=== PATIENT | male | born 1975 | race Caucasian/White ===

== ENCOUNTER 2018-04-10 17:12 | Inpatient (IN) ==
[2018-04-10] MEDS ORDERED: Alteplase Bolus 9 MG/9 ML Syringe IV.PUSH ONE (17:42)
[2018-04-10] MEDS ORDERED: ALTEPLASE DRIP IV.SIG ONE (17:42)
--- NOTE | 2018-04-10 17:43 | CT ---
EXAM DATE: 04/10/2018 5:29 PM EDT AGE/SEX: 42 years / Male INDICATIONS: Stroke alert, dysphasia and left sided weakness. CLINICAL DATA: This is the patient's initial encounter. Patient reports that signs and symptoms have been present for 1 day and indicates a pain score of Nonresponsive. MEDICAL/SURGICAL HISTORY: Non-responsive. Non-responsive. RADIATION DOSE: 66.34 CTDI (mGy) COMPARISON: No prior exams available for comparison. TECHNIQUE: CT of the head without contrast. Using automated exposure control and adjustment of the mA and/or kV according to patient size, radiation dose was kept as low as reasonably achievable to ob tain optimal diagnostic quality images. DICOM format image data is available electronically for revi ew and comparison. FINDINGS: Cerebrum: The ventricles are normal for age. No evidence of midline shift, mass lesion, hemorrhage or acute infarction. No extraaxial fluid collections are seen. Posterior Fossa: The cerebellum and brainstem are intact. The 4th ventricle is midline. The cerebe llopontine angle is unremarkable. Extracranial: The visualized portion of the orbits is intact. Skull: The calvaria is intact. No evidence of skull fracture. CONCLUSION: 1. Negative noncontrast CT with no evidence of hemorrhage or mass effect. Report was called by [Dr. Avalos to Dr. Pugh in the emergency room at 1737 hours. ] Electronically signed by: Lawrence Avalos MD 04/10/2018 5:42 PM EDT
--- NOTE | 2018-04-10 17:52 | CT ---
EXAM DATE: 04/10/2018 5:29 PM EDT AGE/SEX: 42 years / Male INDICATIONS: Stroke alert, dysphasia and left sided weakness. CLINICAL DATA: This is the patient's initial encounter. Patient reports that signs and symptoms have been present for 1 day and indicates a pain score of Nonresponsive. MEDICAL/SURGICAL HISTORY: Non-responsive. Non-responsive. RADIATION DOSE: 9.42 CTDI (mGy) COMPARISON: [facility] – [place] HEAD W/O CONTRAST, 04/10/2018. . TECHNIQUE: Volumetric scanning was performed using a multi-row detector CT scanner during bolus infu doug of 100 ml Visipaque 320 (iodixanol) nonionic water-soluble contrast as a cumulative dose for mu ltiple exams. The data was post processed with a variety of visualization algorithms including full volume maximum intensity projection, multi-planar sliding thin slab reformation, curved planar refor mation, and surface rendering techniques. Using automated exposure control and adjustment of the mA and/or kV according to patient size, radiation dose was kept as low as reasonably achievable to obtai n optimal diagnostic quality images. DICOM format image data is available electronically for review and comparison. FINDINGS: The distal internal carotid arteries are widely patent. The appearance of the anterior and middle cer ebral circulation is within normal limits. Both vertebral arteries are patent. The basilar is widely patent. The posterior cerebral circulation is patent throughout its course. CONCLUSION: 1. The intracranial circulation is widely patent. No large or central vessel occlusion identified. Electronically signed by: Marcos Navarro MD 04/10/2018 5:51 PM EDT
[2018-04-10] MEDS: Sod Chloride 0.9% Inj 1,000 ML IV.CONT SCH (17:59)
[2018-04-10 18:06] LABS: Alanine Aminotransferase 156 U/L (12-78)
[2018-04-10 18:11] LABS: Alkaline Phosphatase 54 U/L (45-117); Anion Gap 12 meq/L (5-15); Aspartate Aminotransferase 212 U/L (15-37); Blood Urea Nitrogen 6 mg/dL (7-18); Calcium 8.3 mg/dL (8.5-10.1); Carbon Dioxide 26.5 meq/L (21.0-32.0); Chloride 104 meq/L (98-107); Creatine Kinase 206 U/L (39-308); Glomerular Filtration Rate Greater Than 89 mL/min (>89); Glucose,Random 102 mg/dL (74-106); Potassium 3.3 meq/L (3.5-5.1); Sodium 142 meq/L (136-145); Total Protein 8.2 g/dL (6.4-8.2)
[2018-04-10 18:12] LABS: Alcohol 327 mg/dL (0-5)
--- NOTE | 2018-04-10 18:12 | ED ---
HPI General Chief Complaint: Stroke Alert Stated Complaint: Poss injestion Time Seen by Provider: 04/10/18 17:27 Source: patient Mode of arrival: ambulatory Limitations: no limitations History of Present Illness HPI Narrative: The patient is a 42-year-old male who arrives to the ED due to weakness in the left arm and left leg. Symptoms started about 1 hour prior while he was drinking alcohol at a bar. Patient reports drinking alcohol typically every day however believes that symptoms today are different from anything related to alcohol previously. He reports a TIA in the past with symptoms that included numbness and tingling left face arm and legs. Onset (ago): hour(s) (1) Timing confirmed by: other (EMS) Location: Reports left face, left arm and left leg History of same: No Severity: mild Quality: Reports weak, numb and tingling Relieving factors: none Exacerbating factors: none Context: Reports sudden onset On Anticoagulants: No (pt states he might take aspirin) Associated symptoms: Reports other (alcohol intoxication) Related Data Home Medications Medication Instructions Recorded Confirmed Unable to Obtain Home Meds 04/10/18 04/10/18 Allergies Allergy/AdvReac Type Severity Reaction Status Date / Time No Known Allergies Allergy Verified 04/10/18 17:46 Review of Systems ROS Unobtainable ROS Unobtainable: unobtainable due to mental condition PMFSH Medical History Medical History Femur fracture, right (Acute) Fibula fracture (Acute) TIA (transient ischemic attack) (Acute) Surgical History Surgical History History of shoulder surgery (Acute) Social History Social History Substance History: Active Abuse Second Hand Smoke Exposure: Yes Smoking Status: Current every day smoker Tobacco Type: Cigarettes How Often Do You Have a Drink Containing Alcohol: 4 or more times a week Recent Travel in [email or web address] within the Last 8 Weeks: No Recent Out of Country Travel within the Last 8 Weeks: No Substance Abuse Detail Marijuana: Substance Use Status: Active Route Used Substance Abuse: Inhalation Reason for Use: Feels Good Immunization History Tetanus Immunization: Unsure Hx Influenza Vaccine This Season: No Exam Narrative Exam Narrative: GENERAL: 42-year-old male well-nourished well-developed EtOH on breath mildly anxious SKIN: Focused skin assessment warm/dry. HEAD: Atraumatic. Normocephalic. EYES: Pupils equal and round. No scleral icterus. No injection or drainage. Trace scleral blood is present in the right eye medially and laterally. ENT: No nasal bleeding or discharge. Mucous membranes pink and moist. NECK: Trachea midline. No JVD. CARDIOVASCULAR: Regular rate and rhythm. No murmur appreciated. RESPIRATORY: No accessory muscle use. Clear to auscultation. Breath sounds equal bilaterally. GASTROINTESTINAL: Abdomen soft, non-tender, nondistended. Hepatic and splenic margins not palpable. MUSCULOSKELETAL: No obvious deformities. No clubbing. No cyanosis. No edema. NEUROLOGICAL: Awake and alert. Speech is somewhat slurred potentially related to alcohol intoxication. Left upper extremity weakness is noted 4/5. Left lower extremity weakness is noted for 5. There is sensory loss to pin along the left leg left hand and left face. PSYCHIATRIC: Appropriate mood and affect; insight and judgment normal. Course Initial Documented Vital Signs Pulse Oximetry 97 04/10/18 17:27 Last Documented Vital Signs Temperature 98.7 F 04/10/18 17:42 Pulse Rate 68 04/10/18 17:42 Respiratory Rate 18 04/10/18 17:42 Blood Pressure 136/86 04/10/18 17:42 Pulse Oximetry 99 04/10/18 18:12 Critical Care Time Critical Care Time: Yes Total Critical Care Time: 45 Attestation: The aggregate critical care time was 45 minutes. Time to perform other separately billable procedures was not included in the critical care time. My time did not include minutes spent treating any other patients simultaneously or on activities that did not directly contribute to the patient's treatment. The services I provided to this patient were to treat and/or prevent clinically significant deterioration that could result in: Permanent deficit, disability I provided critical care services requiring my management, as noted below: Chart data review, documentation time, medication orders and management, vital sign assessments/reviewing monitor data, ordering and reviewing lab tests, ordering and interpreting/reviewing x-rays and diagnostic studies, care of the patient and discussion of the patient with the admitting physicians. NIH Stroke Scale NIH Stroke Scale Level of Consciousness: 1-Drowsy Orientation Questions: 0-Answers both correct Responds to Commands: 0-Both tasks correct Gaze Eye Movement: 0-Horizontal movement WNL Visual Ji: 0-No visual field defect Facial Movement: 0-Normal Motor Functions Arm LEFT: 1-Drift before 10 seconds Motor Functions Arm RIGHT: 0-No drift Motor Functions Leg LEFT: 1-Drift before 5 seconds Motor Functions Leg RIGHT: 0-No drift Limb Ataxia: 0-No ataxia Sensory Loss: 1-Mild sensory loss Best Language: 1-Mild aphasia Articulation: 0-Normal Extinction or Inattention Sensory: 0-Absent Total: 5 Medical Decision Making MDM Narrative Medical decision making narrative: Patient arrives intoxicated with alcohol. Findings are concerning for ischemic stroke. Head CT normal CT of the head and neck normal. The patient received alteplase. He has minimal scleral blood on the right side. This was discussed with ophthalmology. It is not considered to be a contraindication to alteplase. Neurology consultation appreciated. The patient will be admitted to the [facility]. Case discussed with Dr. Richardson for the assistant director service. Medical Screen Exam Complete: Yes Emergency Medical Condition: Yes Differential Diagnosis Differential Diagnosis: Ischemic stroke, hemorrhagic stroke, alcohol intoxication Lab Data Result diagrams: 04/10/18 17:23 04/10/18 17:23 Lab Results 04/10/18 04/10/18 04/10/18 Range/Units 17:23 17:23 17:23 POC Hgb (Calc) 14.6 (13.0-17.0) g/dL POC Hct 43.0 (39-51.0) % POC Sodium 143 (137-144) mmol/L Sodium 142 (136-145) meq/L POC Potassium 3.4 L (3.6-5.0) mmol/L Potassium 3.3 L (3.5-5.1) meq/L POC Chloride 102 (102-111) mmol/L Chloride 104 (98-107) meq/L Carbon Dioxide 26.5 (21.0-32.0) meq/L Anion Gap 12 (5-15) meq/L POC BUN 5 (5-21) mg/dL BUN 6 L (7-18) mg/dL Creatinine 0.77 (0.60-1.30) mg/dL POC Creatinine 1.0 (0.6-1.3) mg/dL Estimated GFR Greater than 89 (>89) mL/min POC Glucose 108 (68-110) mg/dL Random Glucose 102 (74-106) mg/dL Calcium 8.3 L (8.5-10.1) mg/dL Total Bilirubin 0.6 (0.2-1.0) mg/dL AST 212 H (15-37) U/L ALT 156 H (12-78) U/L Alkaline Phosphatase 54 (45-117) U/L Total Creatine Kinase 206 (39-308) U/L Troponin I Less than 0.02 L (0.02-0.05) ng/mL Total Protein 8.2 (6.4-8.2) g/dL Albumin 4.0 (3.4-5.0) g/dL Serum Alcohol 327 H (0-5) mg/dL Blood Type O Positive Blood Type Recheck Required 04/10/18 04/10/18 Range/Units 17:23 18:01 POC Hgb (Calc) (13.0-17.0) g/dL POC Hct (39-51.0) % POC Sodium (137-144) mmol/L Sodium (136-145) meq/L POC Potassium (3.6-5.0) mmol/L Potassium (3.5-5.1) meq/L POC Chloride (102-111) mmol/L Chloride (98-107) meq/L Carbon Dioxide (21.0-32.0) meq/L Anion Gap (5-15) meq/L POC BUN (5-21) mg/dL BUN (7-18) mg/dL Creatinine (0.60-1.30) mg/dL POC Creatinine (0.6-1.3) mg/dL Estimated GFR (>89) mL/min POC Glucose 100 (68-110) mg/dL Random Glucose (74-106) mg/dL Calcium (8.5-10.1) mg/dL Total Bilirubin (0.2-1.0) mg/dL AST (15-37) U/L ALT (12-78) U/L Alkaline Phosphatase (45-117) U/L Total Creatine Kinase Cancelled (39-308) U/L Troponin I Cancelled (0.02-0.05) ng/mL Total Protein (6.4-8.2) g/dL Albumin (3.4-5.0) g/dL Serum Alcohol (0-5) mg/dL Blood Type Blood Type Recheck Imaging Data Radiologist's impression: Head CT 04/10/18 17:27 CONCLUSION: 1. Negative noncontrast CT with no evidence of hemorrhage or mass effect. Report was called by [Dr. Avalos to Dr. Pugh in the emergency room at 1737 hours. ] Head CTA 04/10/18 17:27 CONCLUSION: 1. The intracranial circulation is widely patent. No large or central vessel occlusion identified. ECG Data Attestation: I personally reviewed and interpreted this ECG as follows: (EKG shows sinus rhythm with a rate of 76 no ischemic injury pattern or arrhythmia) Discharge Plan Discharge Disposition Patient Disposition: 30 Still Patient Physicians Team ED Provider: Marcos Pugh Other Providers: Ger Blancas Rxs /Orders / Referrals /Forms Prescriptions: No Action Unable to Obtain Home Meds RF: 0 Status ED Status: With Doctor
[2018-04-10 18:15] LABS: Baso # (Auto) 0.1 th/mm3 (0.0-0.2); Baso % (Auto) 2.1 % (0.0-2.0); Eos # (Auto) 0.1 th/mm3 (0.0-0.4); Eos % (Auto) 1.4 % (0.0-4.0); Hematocrit 41.2 % (39.0-51.0); Hemoglobin 14.6 gm/dL (13.0-17.0); Lymph # (Auto) 1.2 th/mm3 (1.0-4.8); Lymph % (Auto) 32.6 % (9.0-44.0); Mean Corpuscular HGB Conc 35.5 % (32.0-36.0); Mean Corpuscular Hemoglobin 38.8 pg (27.0-34.0); Mean Corpuscular Volume 109.4 fL (80.0-100.0); Mono # (Auto) 0.4 th/mm3 (0.0-0.9); Mono % (Auto) 10.2 % (0.0-8.0); Neut % (Auto) 53.7 % (16.0-70.0); Platelet Count 239 th/mm3 (150-450); Red Blood Count 3.77 mil/mm3 (4.50-5.90); Red Cell Distribution Width 16.7 % (11.6-17.2); White Blood Count 3.8 th/mm3 (4.0-11.0)
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
[2018-04-10 18:17] LABS: Activated Partial Thrombo Time 28.5 sec (24.3-30.1); Prothrombin Time 10.4 sec (9.8-11.6)
--- NOTE | 2018-04-10 18:23 | XR ---
EXAM DATE: 04/10/2018 5:27 PM EDT AGE/SEX: 42 years / Male INDICATIONS: Stroke alert. CLINICAL DATA: This is the patient's initial encounter. Patient reports that signs and symptoms have been present for 1 day and indicates a pain score of 0/10. MEDICAL/SURGICAL HISTORY: None. None. COMPARISON: No prior exams available for comparison. FINDINGS: A single AP view of the chest demonstrates the lungs to be symmetrically aerated without evidence of mass, infiltrate or effusion. The cardiomediastinal contours are unremarkable. Osseous structures a re intact. There are overlying electrocardiogram leads and tubing. CONCLUSION: No acute cardiopulmonary disease. Electronically signed by: Lawrence Avalos MD 04/10/2018 6:22 PM EDT
--- NOTE | 2018-04-10 18:23 | CT ---
EXAM DATE: 04/10/2018 5:29 PM EDT AGE/SEX: 42 years / Male INDICATIONS: Stroke alert, dysphasia and left sided weakness. CLINICAL DATA: This is the patient's initial encounter. Patient reports that signs and symptoms have been present for 1 day and indicates a pain score of Nonresponsive. MEDICAL/SURGICAL HISTORY: Non-responsive. Non-responsive. RADIATION DOSE: 9.42 CTDI (mGy) ; Combined studies COMPARISON: No prior exams available for comparison. TECHNIQUE: Volumetric scanning was performed using a multirow detector CT scanner during bolus infus ion of 100 ml Visipaque 320 (iodixanol) nonionic water-soluble contrast as a cumulative dose for mul tiple exams. The data was postprocessed with a variety of visualization algorithms including full-v olume maximum intensity projection, multiplanar sliding thin-slab reformation, curved-planar reformat ion, and surface-rendering techniques. Using automated exposure control and adjustment of the mA and /or kV according to patient size, radiation dose was kept as low as reasonably achievable to obtain o ptimal diagnostic quality images. DICOM format image data is available electronically for review and comparison. Percent stenosis is calculated using the diameter of the stenotic region over the diameter of the nor mal distal internal carotid artery. FINDINGS: Aortic Arch: There is a three-vessel origin of the great vessels from the aorta. No evidence of ost ial narrowing Right Carotid: The common carotid artery is intact. The carotid bulb has a normal configuration wit hout ulceration or narrowing. The internal carotid artery lumen is smooth without stenosis. The ext ernal carotid artery is intact. Left Carotid: The common carotid artery is intact. The carotid bulb has a normal configuration with out ulceration or narrowing. The internal carotid artery lumen is smooth without stenosis. The exte rnal carotid artery is intact. Vertebrals: The vertebral arteries have a symmetric diameter. No stenotic lesions are seen. CONCLUSION: 1. Negative CTA Carotid. Electronically signed by: Marcos Navarro MD 04/10/2018 6:21 PM EDT
[2018-04-10] MEDS ORDERED: Bisacodyl 10 MG Supp RECTAL PRN (18:44)
[2018-04-10] MEDS ORDERED: LORazepam 1 MG Tablet PO PRN (18:48)
[2018-04-10] MEDS ORDERED: Haloperidol Inj 5 MG/ML Ampul IV.PUSH PRN (18:48)
[2018-04-10 19:32] LABS: Folate 2.7 ng/mL (3.1-17.5); Free T4 (Free Thyroxine) 0.86 ng/dL (0.76-1.46); Thyroid Stimulating Hormone 0.773 uIU/mL (0.358-3.740)
[2018-04-10] MEDS ORDERED: hydrALAZINE HCl Inj 20 MG/ML Vial IV.PUSH PRN (19:46)
[2018-04-10] MEDS ORDERED: Labetalol HCl Inj 100 MG/20 ML Vial IV.PUSH PRN (19:46)
[2018-04-10] MEDS ORDERED: Potassium Phosphate Inj 30 MMOL in Sodium Chlor 0.9% Inj 250 ML IV.SIG PRN (20:18)
[2018-04-10] MEDS ORDERED: Magnesium Oxide 400 MG Tablet PO PRN (20:18)
[2018-04-10] MEDS ORDERED: Potassium Chloride 25 MEQ Effervescent Tablet PO PRN (20:18)
[2018-04-10] MEDS ORDERED: Potassium Chlor 40 mEq Premix 40 MEQ/100 ML PIGGYBACK IV.SIG PRN ×2 (20:18)
[2018-04-10] MEDS ORDERED: Magnesium Sulfate Inj 2 GM in Sodium Chlor 0.9% Inj 96 ML IV.SIG PRN (20:18)
[2018-04-10] MEDS ORDERED: Potassium Phosphate 500 MG Soluble Tablet PO PRN ×2 (20:18)
[2018-04-10] MEDS ORDERED: Sodium Phosphate Inj 30 MMOL in Sodium Chlor 0.9% Inj 250 ML IV.SIG PRN (20:18)
[2018-04-10] MEDS ORDERED: Potassium Chlor 20 mEq Premix 20 MEQ/100 ML PIGGYBACK IV.SIG PRN ×2 (20:18)
[2018-04-10] MEDS ORDERED: Magnesium Sulfate Inj 4 GM in Sodium Chlor 0.9% Inj 92 ML IV.SIG PRN (20:18)
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
[2018-04-10] MEDS ORDERED: Gadobutrol PF 7.5 MMOL/7.5 ML Vial (for RAD) IV.SIG ONE (21:35)
--- NOTE | 2018-04-10 21:43 | MR ---
EXAM DATE: 04/10/2018 8:46 PM EDT AGE/SEX: 42 years / Male INDICATIONS: Stroke alert. Left side weakness. CLINICAL DATA: This is the patient's initial encounter. Patient reports that signs and symptoms have been present for 1 day and indicates a pain score of 0/10. MEDICAL/SURGICAL HISTORY: Hypertension. . Orthopedic. [place] [facility] [place] W 3[place]/10/2018. . TECHNIQUE: Multiplanar, multisequence examination of the brain was performed without and with 7cc ml Gadavist (gadobutrol) contrast as a single exam dose. FINDINGS: Cerebrum: The ventricles are normal for age. No evidence of midline shift, mass lesion, hemorrhage or acute infarction. No extraaxial fluid collections are seen. The pituitary gland and suprasellar cistern are normal in configuration. White Matter: No significant signal abnormalities are seen in the white matter. Posterior Fossa: The cerebellum and brainstem are intact. The 4th ventricle is midline. The cerebel lopontine angle is unremarkable. The cerebellar tonsils are normal in position. Diffusion Imaging: No focal areas of restricted diffusion are seen. No evidence of acute infarction . Extracranial: The visualized portions of the orbits and paranasal sinuses are unremarkable. Post Contrast: No abnormal areas of parenchymal or dural enhancement. No evidence of blood-brain ba rrier breakdown. CONCLUSION: 1. Negative exam with no evidence of hemorrhage or infarction. Electronically signed by: Lawrence Avalos MD 04/10/2018 9:42 PM EDT
[2018-04-10] MEDS: Multivitamin Inj 10 ML, Thiamine Inj 100 MG, Folic Acid Inj 1 MG in Sodium Chlor 0.9% I... IV.SIG SCH (23:56)
[2018-04-10] MEDS: Senna/Docusate Sodium 8.6/50 MG Tablet PO SCH (23:56)
[2018-04-10] MEDS: Famotidine 20 MG Tablet PO SCH (23:56)
[2018-04-11] MEDS ORDERED: Chlorhexidine Gluconate 2% 1 Pack (2 Cloths) TOPICAL PRN (04:00)
[2018-04-11] MEDS: Chlorhexidine Gluconate 2% 1 Pack (2 Cloths) TOPICAL SCH (04:03)
[2018-04-11 07:22] LABS: Amphetamine Screen,Urine Neg (Neg); Barbiturate Screen,Urine Neg (Neg); Cannabinoid Screen,Urine Pos (Neg); Cocaine Screen,Urine Pos (Neg)
[2018-04-11 07:24] LABS: Opiate Screen,Urine Neg (Neg)
[2018-04-11 07:26] LABS: Chol/HDL Ratio 2.04 Ratio; HDL Cholesterol 79.6 mg/dL (40.0-60.0)
[2018-04-11 07:50] LABS: Bacteria,Urine Occasional /hpf; Bilirubin,Urine Negative (Negative); Clarity,Urine Clear (Clear); Color,Urine Amber (Yellw/Straw); Glucose,Urine (UA) Negative (Negative); Leukocyte Esterase,Urine Negative (Negative); Mucus,Urine Moderate /lpf (Occasional); Nitrite,Urine Negative (Negative); Squamous Epithelial Cell,Urine <1 /hpf (0-5); Urobilinogen,Urine 4 or Greater mg/dL (Less than 2)
[2018-04-11] MEDS: Famotidine 20 MG Tablet PO SCH ×2 (08:14→21:08)
[2018-04-11] MEDS: Senna/Docusate Sodium 8.6/50 MG Tablet PO SCH ×2 (08:14→21:08)
--- NOTE | 2018-04-11 08:33 | P.PNNEU ---
Subjective Subjective Comments: sr Active Medications: Active Medications Al Hydroxide/Mg Hydroxide (Milk Of Josy Price) 30 ml PO Q12H PRN PRN Reason: Mild Constipation Albuterol (Duoneb Neb (Prn)) 1 ampul NEB Q2HR NEB PRN PRN Reason: WHEEZING Bisacodyl (Dulcolax Supp) 10 mg RECTAL DAILY PRN PRN Reason: SEVERE CONSITIPATION Chlorhexidine Gluconate (Chlorhexidine 2% Cloth) 3 pack TOPICAL DAILY@0400 [facility] Stop: 04/16/18 03:59 Last Admin: 04/11/18 04:03 Dose: 3 pack Chlorhexidine Gluconate (Chlorhexidine 2% Cloth) 3 pack TOPICAL DAILY@0400 PRN PRN Reason: Extra cloth needed Stop: 04/16/18 03:59 Cyanocobalamin (Vitamin B12 Inj) 1,000 mcg IM ONCE [facility] Famotidine (Pepcid) 20 mg PO BID [facility] Last Admin: 04/11/18 08:14 Dose: 20 mg Flumazenil (Romazecon Inj) 0.2 mg IV.PUSH Q1M PRN PRN Reason: OVERSEDATION Haloperidol Lactate (Haldol Inj) 1 mg IV.PUSH Q15M PRN PRN Reason: for severe agitation Hydralazine HCl (Apresoline Inj) 10 mg IV.PUSH Q30M PRN PRN Reason: SBP >180 or DBP >105 Sodium Chloride (Ns Inj) 1,000 mls @ 70 mls/hr IV.CONT .[id number] [facility] Last Admin: 04/10/18 17:59 Dose: 70 mls/hr Multivitamins 10 ml/ Thiamine HCl 100 mg/ Folic Acid 1 mg/Sodium Chloride 511.2 mls @ 127.8 mls/hr IV.SIG Q24H [facility] Last Infusion: 04/11/18 04:03 Dose: Infused Magnesium Sulfate 4 gm/ Sodium (Chloride) 100 mls @ 50 mls/hr IV.SIG UNSCH PRN PRN Reason: For Magnesium 0.9 - 1.1 mg/dL Magnesium Sulfate 2 gm/ Sodium (Chloride) 100 mls @ 50 mls/hr IV.SIG UNSCH PRN PRN Reason: For Magnesium 1.2 - 1.6 mg/dL Potassium Chloride (Kcl 40 Meq Premix Inj) 40 meq in 100 mls @ 25 mls/hr IV.SIG Q2H PRN PRN Reason: For Potassium 2.8 - 3.2 mEq/L Potassium Chloride (Kcl 20 Meq Premix Inj) 20 meq in 100 mls @ 50 mls/hr IV.SIG Q2H PRN PRN Reason: For Potassium 3.3 - 3.5 mEq/L Potassium Chloride (Kcl 20 Meq Premix Inj) 20 meq in 100 mls @ 50 mls/hr IV.SIG Q2H PRN PRN Reason: For Potassium 2.8 - 3.2 mEq/L Potassium Phosphate 30 mmol/ (Sodium Chloride) 260 mls @ 42 mls/hr IV.SIG UNSCH PRN PRN Reason: SEE LABEL COMMENTS Sodium Phosphate 30 mmol/ (Sodium Chloride) 260 mls @ 42 mls/hr IV.SIG UNSCH PRN PRN Reason: For Phosphorus < 2.5 mg/dL Potassium Chloride (Kcl 40 Meq Premix Inj) 40 meq in 100 mls @ 25 mls/hr IV.SIG UNSCH PRN PRN Reason: For Potassium 3.3 - 3.5 mEq/L Labetalol HCl (Trandate Inj) 10 mg IV.PUSH Q4H PRN PRN Reason: SBP >180 or DBP >105 Lactulose (Lactulose Liq) 30 ml PO DAILY PRN PRN Reason: SEVERE CONSITIPATION Lorazepam (Ativan) 1 mg PO Q4H PRN PRN Reason: for CIWA 8-10 Lorazepam (Ativan) 2 mg PO Q2H PRN PRN Reason: for CIWA 11-14 Lorazepam (Ativan Inj) 2 mg IV.PUSH Q2H PRN PRN Reason: for CIWA 11-14 Last Admin: 04/10/18 21:00 Dose: 2 mg Lorazepam (Ativan Inj) 2 mg IV.PUSH Q1H PRN PRN Reason: for CIWA 15-20 Lorazepam (Ativan Inj) 2 mg IV.PUSH Q15M PRN PRN Reason: for CIWA > 20 Lorazepam (Ativan Inj) 1 mg IV.PUSH Q4H PRN PRN Reason: for CIWA 8-10 Magnesium Oxide (Mag-Ox) 800 mg PO UNSCH PRN PRN Reason: For Magnesium 1.2 - 1.6 mg/dL Ondansetron HCl (Zofran Inj) 4 mg IV.PUSH Q6H PRN PRN Reason: NAUSEA OR VOMITING Potassium Bicarb/Potassium Chloride (K-Lyte Cl Eff) 50 meq PO UNSCH PRN PRN Reason: For Potassium 3.3 - 3.5 mEq/L Potassium Phosphate (K-Phos Original) 2,000 mg PO Q4H PRN PRN Reason: Phosphorus Less Than 2.5 mg/dL Potassium Phosphate (K-Phos Original) 2,000 mg PO UNSCH PRN PRN Reason: SEE LABEL COMMENTS Senna/Docusate Sodium (Isa-Colace) 1 tab PO BID [facility] Last Admin: 04/11/18 08:14 Dose: Not Given Sennosides (Senokot) 17.2 mg PO Q12H PRN PRN Reason: Moderate Constipation Sodium Chloride (Ns Flush) 2 ml IV.FLUSH PRN PRN PRN Reason: FLUSH AFTER USING IV ACCESS Sodium Chloride (Ns Flush) 2 ml IV.FLUSH BID [facility] Last Admin: 04/11/18 08:14 Dose: 2 ml Allergies/Adverse Reactions: Allergies Allergy/AdvReac Type Severity Reaction Status Date / Time No Known Allergies Allergy Verified 04/10/18 17:46 Physical Exam Vital signs: Vital Signs 04/10/18 17:27 04/10/18 17:42 04/10/18 18:12 Temperature 98.7 F Pulse Rate 68 Respiratory Rate 18 Blood Pressure 136/86 Pulse Oximetry 98 99 99 04/10/18 20:01 04/10/18 20:31 04/10/18 20:50 Temperature 97.7 F Pulse Rate 70 54 L Respiratory Rate 16 16 Blood Pressure 127/82 Pulse Oximetry 98 100 100 04/10/18 21:01 04/10/18 22:01 04/10/18 22:31 Temperature Pulse Rate 52 L 75 67 Respiratory Rate 15 15 15 Blood Pressure 116/65 Pulse Oximetry 99 99 98 04/10/18 23:01 04/10/18 23:31 04/11/18 00:01 Temperature Pulse Rate 64 62 62 Respiratory Rate 14 15 14 Blood Pressure Pulse Oximetry 98 98 97 04/11/18 00:31 04/11/18 01:01 04/11/18 01:31 Temperature Pulse Rate 61 66 65 Respiratory Rate 15 14 14 Blood Pressure 121/70 Pulse Oximetry 98 98 98 04/11/18 02:31 04/11/18 03:31 04/11/18 04:00 Temperature 97.5 F L Pulse Rate 64 58 L 63 Respiratory Rate 14 17 18 Blood Pressure Pulse Oximetry 98 98 99 04/11/18 05:00 04/11/18 06:00 Temperature Pulse Rate 62 81 Respiratory Rate 17 18 Blood Pressure 144/89 H 164/91 H Pulse Oximetry 99 98 Intake & Output 04/10/18 04/11/18 04/11/18 18:59 06:59 18:59 Intake Total 57 / 57 511.2 / 511.2 Balance 57 / 57 511.2 / 511.2 Weight 71.1 kg 71 kg Intake: IV 57 / 57 511.2 / 511.2 Activase Drip 57 MG In Bag/ 57 / 57 Syringe 1 EACH @ 57 mls/hr IV. SIG ONCE ONE Rx#:[id number] MVI-12 Inj 10 ML Thiamine Inj 511.2 / 511.2 100 MG Folvite Inj 1 MG In NS Inj 500 ML @ 127.8 mls/hr IV. SIG Q24H [facility] Rx#:[id number] Other: Weight On Admission 71 kg Narrative: awake alert minor give way lue and lle ow nl / t/o voice clear now Objective Laboratory Results - last 24 hr 04/10/18 04/10/18 04/10/18 17:23 17:23 17:23 WBC 3.8 L RBC 3.77 L Hgb 14.6 POC Hgb (Calc) 14.6 Hct 41.2 POC Hct 43.0 MCV 109.4 H MCH 38.8 H MCHC 35.5 RDW 16.7 Plt Count 239 MPV 7.0 Neut % (Auto) 53.7 Lymph % (Auto) 32.6 [place] % (Auto) 10.2 H Eos % (Auto) 1.4 Baso % (Auto) 2.1 H Neut # (Auto) 2.0 Lymph # (Auto) 1.2 [place] # (Auto) 0.4 Eos # (Auto) 0.1 Baso # (Auto) 0.1 WBC Differential . Differential Comment Auto diff final ESR PT INR APTT Fibrinogen POC Sodium 143 Sodium POC Potassium 3.4 L Potassium POC Chloride 102 Chloride Carbon Dioxide Anion Gap POC BUN 5 BUN Creatinine POC Creatinine 1.0 Estimated GFR POC Glucose 108 Random Glucose Calcium Total Bilirubin AST ALT Alkaline Phosphatase Total Creatine Kinase Troponin I Total Protein Albumin Triglycerides Cholesterol LDL Cholesterol, Calc HDL Cholesterol Cholesterol/HDL Ratio Vitamin B12 Folate TSH Free T4 Urine Color Urine Clarity Urine pH Ur Specific [place] Urine Protein Urine Glucose (UA) Urine Ketones Urine Occult Blood Urine Nitrate Urine Bilirubin Urine Urobilinogen Ur Leukocyte Esterase Urine RBC Urine WBC Ur Squamous Epith Cells Urine Bacteria Urine Mucus Micro UA Comment Ur Microscopic Review Urine Culture Comments Urine Opiates Screen Ur Barbiturates Screen Ur Amphetamines Screen U Benzodiazepines Scrn Urine Cocaine Screen U Cannabinoids Screen Serum Alcohol Blood Type O Positive Blood Type Recheck Required Antibody Screen Negative 04/10/18 04/10/18 04/10/18 17:23 17:23 17:23 WBC RBC Hgb POC Hgb (Calc) Hct POC Hct MCV MCH MCHC RDW Plt Count MPV Neut % (Auto) Lymph % (Auto) [place] % (Auto) Eos % (Auto) Baso % (Auto) Neut # (Auto) Lymph # (Auto) [place] # (Auto) Eos # (Auto) Baso # (Auto) WBC Differential Differential Comment ESR PT 10.4 INR 1.0 APTT 28.5 Fibrinogen 232 POC Sodium Sodium 142 POC Potassium Potassium 3.3 L POC Chloride Chloride 104 Carbon Dioxide 26.5 Anion Gap 12 POC BUN BUN 6 L Creatinine 0.77 POC Creatinine Estimated GFR Greater than 89 POC Glucose Random Glucose 102 Calcium 8.3 L Total Bilirubin 0.6 AST 212 H ALT 156 H Alkaline Phosphatase 54 Total Creatine Kinase 206 Cancelled Troponin I Less than 0.02 L Cancelled Total Protein 8.2 Albumin 4.0 Triglycerides Cholesterol LDL Cholesterol, Calc HDL Cholesterol Cholesterol/HDL Ratio Vitamin B12 Folate TSH Free T4 Urine Color Urine Clarity Urine pH Ur Specific [place] Urine Protein Urine Glucose (UA) Urine Ketones Urine Occult Blood Urine Nitrate Urine Bilirubin Urine Urobilinogen Ur Leukocyte Esterase Urine RBC Urine WBC Ur Squamous Epith Cells Urine Bacteria Urine Mucus Micro UA Comment Ur Microscopic Review Urine Culture Comments Urine Opiates Screen Ur Barbiturates Screen Ur Amphetamines Screen U Benzodiazepines Scrn Urine Cocaine Screen U Cannabinoids Screen Serum Alcohol 327 H Blood Type Blood Type Recheck Antibody Screen 04/10/18 04/10/18 04/10/18 17:23 17:23 18:01 WBC RBC Hgb POC Hgb (Calc) Hct POC Hct MCV MCH MCHC RDW Plt Count MPV Neut % (Auto) Lymph % (Auto) [place] % (Auto) Eos % (Auto) Baso % (Auto) Neut # (Auto) Lymph # (Auto) [place] # (Auto) Eos # (Auto) Baso # (Auto) WBC Differential Differential Comment ESR 10 PT INR APTT Fibrinogen POC Sodium Sodium POC Potassium Potassium POC Chloride Chloride Carbon Dioxide Anion Gap POC BUN BUN Creatinine POC Creatinine Estimated GFR POC Glucose 100 Random Glucose Calcium Total Bilirubin AST ALT Alkaline Phosphatase Total Creatine Kinase Troponin I Total Protein Albumin Triglycerides Cholesterol LDL Cholesterol, Calc HDL Cholesterol Cholesterol/HDL Ratio Vitamin B12 202 Folate 2.7 L TSH 0.773 Free T4 0.86 Urine Color Urine Clarity Urine pH Ur Specific [place] Urine Protein Urine Glucose (UA) Urine Ketones Urine Occult Blood Urine Nitrate Urine Bilirubin Urine Urobilinogen Ur Leukocyte Esterase Urine RBC Urine WBC Ur Squamous Epith Cells Urine Bacteria Urine Mucus Micro UA Comment Ur Microscopic Review Urine Culture Comments Urine Opiates Screen Ur Barbiturates Screen Ur Amphetamines Screen U Benzodiazepines Scrn Urine Cocaine Screen U Cannabinoids Screen Serum Alcohol Blood Type Blood Type Recheck Antibody Screen 04/11/18 04/11/18 04/11/18 06:12 06:45 06:45 WBC RBC Hgb POC Hgb (Calc) Hct POC Hct MCV MCH MCHC RDW Plt Count MPV Neut % (Auto) Lymph % (Auto) [place] % (Auto) Eos % (Auto) Baso % (Auto) Neut # (Auto) Lymph # (Auto) [place] # (Auto) Eos # (Auto) Baso # (Auto) WBC Differential Differential Comment ESR PT INR APTT Fibrinogen POC Sodium Sodium POC Potassium Potassium POC Chloride Chloride Carbon Dioxide Anion Gap POC BUN BUN Creatinine POC Creatinine Estimated GFR POC Glucose Random Glucose Calcium Total Bilirubin AST ALT Alkaline Phosphatase Total Creatine Kinase Troponin I Total Protein Albumin Triglycerides 51 Cholesterol 163 LDL Cholesterol, Calc 73 HDL Cholesterol 79.6 H Cholesterol/HDL Ratio 2.04 Vitamin B12 Folate TSH Free T4 Urine Color Gaby Urine Clarity Clear Urine pH 6.0 Ur Specific [place] Greater than 1.060 H Urine Protein 100 H Urine Glucose (UA) Negative Urine Ketones Negative Urine Occult Blood Negative Urine Nitrate Negative Urine Bilirubin Negative Urine Urobilinogen 4 or greater Ur Leukocyte Esterase Negative Urine RBC Less than 1 Urine WBC 1 Ur Squamous Epith Cells <1 Urine Bacteria Occasional H Urine Mucus Moderate H Micro UA Comment Cath-culture ind Ur Microscopic Review Not Reportable Urine Culture Comments Cath-cult indicated Urine Opiates Screen Neg Ur Barbiturates Screen Neg Ur Amphetamines Screen Neg U Benzodiazepines Scrn Neg Urine Cocaine Screen Pos H U Cannabinoids Screen Pos H Serum Alcohol Blood Type Blood Type Recheck Antibody Screen Review/Management - Review/Management Plan: imp sr mri no cva ctax2 neg fu echo ok to floor oob asa 24 hours after tpa not suprised no cva he was very drunk last pm cocaine positive dc soon if echo neg would dc on asa mvi b12 shot
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
--- NOTE | 2018-04-11 11:44 | MG ---
cc: Mayo Alvarez MD, PhD DATE OF STUDY: 04/11/2018. TEST NUMBER: [id number]. TECHNIQUE: A 17-channel EEG. DESCRIPTION: Background rhythm reveals a symmetrical alpha frequency, 8 Hz. Later there is slowing in the theta range, which appears to be the predominant rhythm. There are no lateralizing features seen. There were no epileptic discharges. Occasional muscle artifact is identified. Photic results in a fairly well-developed driving response. INTERPRETATION: Mildly abnormal study. There is more theta slowing than alpha, consistent with a mild encephalopathy. Maoy Alvarez MD, PhD ROSA M/ld , 11:30 AM , 11:36 AM
[2018-04-11] MEDS: Sod Chloride 0.9% Inj 1,000 ML IV.CONT SCH ×2 (11:59→21:49)
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
--- NOTE | 2018-04-11 14:08 | ECHRPT ---
Indication: CVA / TIA CONCLUSIONS Normal left ventricular size. Wall thickness is normal. The left ventricular systolic function is normal with an estimated ejection fraction in the range of 55-60%. There is trace tricuspid valve regurgitation. The estimated pulmonary arterial pressure is 40 mmHg. BP: / HR: Rhythm: MEASUREMENTS (Male / Female) Normal Values Technical Quality:Good 2D ECHO LV Diastolic Diameter PLAX 5.1 cm 4.2 - 5.9 / 3.9 - 5.3 cm LV Systolic Diameter PLAX 3.3 cm IVS Diastolic Thickness 0.8 cm 0.6 - 1.0 / 0.6 - 0.9 cm LVPW Diastolic Thickness 0.9 cm 0.6 - 1.0 / 0.6 - 0.9 cm LV Relative Wall Thickness 0.3 RV Internal Dim ED PLAX 3.2 cm LVOT Diameter 2.2 cm Aortic Root Diameter 3.3 cm LA Systolic Diameter LX 3.6 cm 3.0 - 4.0 / 2.7 - 3.8 cm DOPPLER AV Peak Velocity 182.0 cm/s AV Peak Gradient 13.2 mmHg LVOT Peak Velocity 170.0 cm/s LVOT Peak Gradient 11.6 mmHg AV Area Cont Eq pk 3.6 cm Mitral E Point Velocity 99.2 cm/s Mitral A Point Velocity 78.0 cm/s Mitral E to A Ratio 1.3 LV E' Lateral Velocity 18.0 cm/s Mitral E to LV E' Lateral Ratio 5.5 LV E' Septal Velocity 13.5 cm/s Mitral E to LV E' Septal Ratio 7.3 TR Peak Velocity 274.0 cm/s TR Peak Gradient 30.0 mmHg Right Atrial Pressure 10.0 mmHg Pulmonary Artery Systolic Pressu 40.0 mmHg Right Ventricular Systolic Press 40.0 mmHg PV Peak Velocity 124.0 cm/s PV Peak Gradient 6.2 mmHg FINDINGS LEFT VENTRICLE Normal left ventricular size. Wall thickness is normal. The left ventricular systolic function is normal with an estimated ejection fraction in the range of 55-60%. RIGHT VENTRICLE Normal right ventricular size and systolic function. LEFT ATRIUM The left atrial size is normal. RIGHT ATRIUM The right atrial size is normal. ATRIAL SEPTUM Normal atrial septal thickness without atrial level shunting by limited color doppler interrogation. AORTA The aortic root and proximal ascending aorta are normal in size on limited imaging. MITRAL VALVE Structurally normal mitral valve. No mitral valve stenosis or regurgitation. AORTIC VALVE Trileaflet aortic valve. TRICUSPID VALVE Structurally normal tricuspid valve. There is trace tricuspid valve regurgitation. The estimated pulmonary arterial pressure is 40 mmHg. PULMONARY VALVE No pulmonary valve regurgitation or stenosis. VESSELS The inferior vena cava is normal in size. PERICARDIUM No pericardial effusion. Dick Carr MD, FACC, [facility] (Electronically Signed) Final Date:11 April 2018 14:07
[2018-04-11 16:08] LABS: Anti-Nuclear Antibody Screen Neg (Neg)
--- NOTE | 2018-04-11 16:18 | ECG ---
Date Performed: 04/10/2018 Time Performed: 18:07:07 PTAGE: 42 years EKG: Sinus rhythm MODERATE VOLTAGE CRITERIA FOR LVH, CONSIDER NORMAL VARIANT NONSPECIFIC T-WAVE ABNORMALITY BORDERLINE ECG INTERPRETATION BASED ON A DEFAULT AGE OF 41 YEARS NO PREVIOUS TRACING DOCTOR: Stacia Marin Interpretating Date/Time 04/11/2018 16:16:09
--- NOTE | 2018-04-11 16:18 | ECG ---
Date Performed: 04/10/2018 Time Performed: 20:46:56 PTAGE: 42 years EKG: Sinus bradycardia. Normal ECG except for rate PREVIOUS TRACING : 04/10/2018 18.07 Since the previous tracing, no significant change not ed DOCTOR: Stacia Marin Interpretating Date/Time 04/11/2018 16:16:25
--- NOTE | 2018-04-11 17:55 | CT ---
EXAM DATE: 04/11/2018 4:41 PM EDT AGE/SEX: 42 years / Male INDICATIONS: Altered mental status. CLINICAL DATA: This is the patient's initial encounter. Patient reports that signs and symptoms have been present for 1 day and indicates a pain score of 0/10. MEDICAL/SURGICAL HISTORY: Stroke. Transient ischemic attack. None. RADIATION DOSE: 46.88 CTDI (mGy) [place]PAR[place]: [facility] [place], 04/10/2018. . TECHNIQUE: CT of the head without contrast. Using automated exposure control and adjustment of the mA and/or kV according to patient size, radiation dose was kept as low as reasonably achievable to ob tain optimal diagnostic quality images. DICOM format image data is available electronically for revi ew and comparison. FINDINGS: Cerebrum: The ventricles are normal for age. No evidence of midline shift, mass lesion, hemorrhage or acute infarction. No extraaxial fluid collections are seen. Posterior Fossa: The cerebellum and brainstem are intact. The 4th ventricle is midline. The cerebe llopontine angle is unremarkable. Extracranial: The visualized portion of the orbits is intact. Skull: The calvaria is intact. No evidence of skull fracture. CONCLUSION: 1. No acute intracranial abnormality. . Electronically signed by: García Aldana MD 04/11/2018 5:54 PM EDT
[2018-04-11] MEDS: Multivitamin Inj 10 ML, Thiamine Inj 100 MG, Folic Acid Inj 1 MG in Sodium Chlor 0.9% I... IV.SIG SCH (21:07)
[2018-04-12] MEDS: Chlorhexidine Gluconate 2% 1 Pack (2 Cloths) TOPICAL SCH (04:14)
--- NOTE | 2018-04-12 07:29 | P.PNNEU ---
Subjective Subjective Comments: no new co not nervous denies anxiety or depression Active Medications: Active Medications Al Hydroxide/Mg Hydroxide (Milk Of Magnesia Liq) 30 ml PO Q12H PRN PRN Reason: Mild Constipation Albuterol (Duoneb Neb (Prn)) 1 ampul NEB Q2HR NEB PRN PRN Reason: WHEEZING Bisacodyl (Dulcolax Supp) 10 mg RECTAL DAILY PRN PRN Reason: SEVERE CONSITIPATION Chlorhexidine Gluconate (Chlorhexidine 2% Cloth) 3 pack TOPICAL DAILY@0400 [facility] Stop: 04/16/18 03:59 Last Admin: 04/12/18 04:14 Dose: Not Given Chlorhexidine Gluconate (Chlorhexidine 2% Cloth) 3 pack TOPICAL DAILY@0400 PRN PRN Reason: Extra cloth needed Stop: 04/16/18 03:59 Cyanocobalamin (Vitamin B12 Inj) 1,000 mcg IM ONCE [facility] Famotidine (Pepcid) 20 mg PO BID [facility] Last Admin: 04/11/18 21:08 Dose: 20 mg Flumazenil (Romazecon Inj) 0.2 mg IV.PUSH Q1M PRN PRN Reason: OVERSEDATION Haloperidol Lactate (Haldol Inj) 1 mg IV.PUSH Q15M PRN PRN Reason: for severe agitation Hydralazine HCl (Apresoline Inj) 10 mg IV.PUSH Q30M PRN PRN Reason: SBP >180 or DBP >105 Sodium Chloride (Ns Inj) 1,000 mls @ 70 mls/hr IV.CONT .[id number] [facility] Last Infusion: 04/12/18 02:46 Dose: Infused Multivitamins 10 ml/ Thiamine HCl 100 mg/ Folic Acid 1 mg/Sodium Chloride 511.2 mls @ 127.8 mls/hr IV.SIG Q24H [facility] Last Infusion: 04/12/18 02:46 Dose: Infused Labetalol HCl (Trandate Inj) 10 mg IV.PUSH Q4H PRN PRN Reason: SBP >180 or DBP >105 Lactulose (Lactulose Liq) 30 ml PO DAILY PRN PRN Reason: SEVERE CONSITIPATION Lorazepam (Ativan) 1 mg PO Q4H PRN PRN Reason: for CIWA 8-10 Lorazepam (Ativan) 2 mg PO Q2H PRN PRN Reason: for CIWA 11-14 Lorazepam (Ativan Inj) 2 mg IV.PUSH Q2H PRN PRN Reason: for CIWA 11-14 Last Admin: 04/10/18 21:00 Dose: 2 mg Lorazepam (Ativan Inj) 2 mg IV.PUSH Q1H PRN PRN Reason: for CIWA 15-20 Lorazepam (Ativan Inj) 2 mg IV.PUSH Q15M PRN PRN Reason: for CIWA > 20 Lorazepam (Ativan Inj) 1 mg IV.PUSH Q4H PRN PRN Reason: for CIWA 8-10 Last Admin: 04/11/18 11:12 Dose: 1 mg Ondansetron HCl (Zofran Inj) 4 mg IV.PUSH Q6H PRN PRN Reason: NAUSEA OR VOMITING Senna/Docusate Sodium (Isa-Colace) 1 tab PO BID [facility] Last Admin: 04/11/18 21:08 Dose: Not Given Sennosides (Senokot) 17.2 mg PO Q12H PRN PRN Reason: Moderate Constipation Sodium Chloride (Ns Flush) 2 ml IV.FLUSH PRN PRN PRN Reason: FLUSH AFTER USING IV ACCESS Sodium Chloride (Ns Flush) 2 ml IV.FLUSH BID [facility] Last Admin: 04/11/18 21:08 Dose: 2 ml Allergies/Adverse Reactions: Allergies Allergy/AdvReac Type Severity Reaction Status Date / Time No Known Allergies Allergy Verified 04/10/18 17:46 Physical Exam Vital signs: Vital Signs 04/11/18 07:45 04/11/18 08:00 04/11/18 09:00 Temperature Pulse Rate 80 79 Respiratory Rate 17 18 Blood Pressure 161/81 H 162/81 H Pulse Oximetry 100 100 95 04/11/18 10:00 04/11/18 12:00 04/11/18 13:00 Temperature Pulse Rate 66 70 74 Respiratory Rate 17 17 16 Blood Pressure 145/78 H 157/82 H 148/82 H Pulse Oximetry 96 96 96 04/11/18 14:00 04/11/18 16:00 04/11/18 20:00 Temperature 98.2 F 98.1 F Pulse Rate 74 66 78 Respiratory Rate 17 14 18 Blood Pressure 148/96 H 158/84 H 151/78 H Pulse Oximetry 96 100 96 04/11/18 21:05 04/11/18 21:10 04/12/18 00:00 Temperature 98.6 F Pulse Rate 59 L Respiratory Rate 18 Blood Pressure 150/73 H Pulse Oximetry 98 96 94 L 04/12/18 04:00 Temperature 98.3 F Pulse Rate 65 Respiratory Rate 18 Blood Pressure 149/83 H Pulse Oximetry 99 Intake & Output 04/11/18 04/12/18 04/12/18 18:59 06:59 18:59 Intake Total 1000 / 1000 1291.2 / 1291.2 Balance 1000 / 1000 1291.2 / 1291.2 Intake: IV 1000 / 1000 1291.2 / 1291.2 NS Inj 1,000 ML @ 70 mls/hr IV. 1000 / 1000 780 / 780 CONT .[id number] [facility] Rx#:[id number] MVI-12 Inj 10 ML Thiamine Inj 511.2 / 511.2 100 MG Folvite Inj 1 MG In NS Inj 500 ML @ 127.8 mls/hr IV. SIG Q24H [facility] Rx#:[id number] Other: # Voids 5 Date of Last Bowel Movement 04/12/18 # Bowel Movements 4 Narrative: vff r conjuctival bleed no change vff face sym 5/5 nol gait and speech Objective Laboratory Results - last 24 hr 04/11/18 04/11/18 04/11/18 06:12 06:13 06:45 LDL Cholesterol, Calc 73 HDL Cholesterol 79.6 H Cholesterol/HDL Ratio 2.04 Urine Color Gaby Urine Clarity Clear Urine pH 6.0 Ur Specific [place] Greater than 1.060 H Urine Protein 100 H Urine Glucose (UA) Negative Urine Ketones Negative Urine Occult Blood Negative Urine Nitrate Negative Urine Bilirubin Negative Urine Urobilinogen 4 or greater Ur Leukocyte Esterase Negative Urine RBC Less than 1 Urine WBC 1 Ur Squamous Epith Cells <1 Urine Bacteria Occasional H Urine Mucus Moderate H Micro UA Comment Cath-culture ind Ur Microscopic Review Not Reportable Urine Culture Comments Cath-cult indicated FELICITY Screen Neg RPR Nonreactive Review/Management - Review/Management Plan: imp sr mri no cva ctax2 neg fu echo ok to floor oob asa 24 hours after tpa not suprised no cva he was very drunk last pm cocaine positive dc soon if echo neg would dc on asa mvi b12 shot 04/12/18 echo and labs nl b12 low injection mvi eeg nl fu holter and hyper screen can dc on asa 81 mg after holter finished should dc drinking and cocaine
[2018-04-12] MEDS: Famotidine 20 MG Tablet PO SCH ×2 (09:50→20:17)
[2018-04-12] MEDS: Aspirin 325 MG Tablet PO SCH (09:51)
[2018-04-12] MEDS: Senna/Docusate Sodium 8.6/50 MG Tablet PO SCH ×2 (09:52→20:17)
--- NOTE | 2018-04-12 10:05 | P.PN ---
Subjective Interval history: Follow-up ischemic right MCA stroke April 12, 2018-, no acute event overnight. No complaint of shortness of breath , chest pain or dizziness. Physical Exam Vital signs: Vital Signs 04/11/18 12:00 04/11/18 13:00 04/11/18 14:00 Temperature Pulse Rate 70 74 74 Respiratory Rate 17 16 17 Blood Pressure 157/82 H 148/82 H 148/96 H Pulse Oximetry 96 96 96 04/11/18 16:00 04/11/18 20:00 04/11/18 21:05 Temperature 98.2 F 98.1 F Pulse Rate 66 78 Respiratory Rate 14 18 Blood Pressure 158/84 H 151/78 H Pulse Oximetry 100 96 98 04/11/18 21:10 04/12/18 00:00 04/12/18 04:00 Temperature 98.6 F 98.3 F Pulse Rate 59 L 65 Respiratory Rate 18 18 Blood Pressure 150/73 H 149/83 H Pulse Oximetry 96 94 L 99 04/12/18 08:00 Temperature 98.2 F Pulse Rate 56 L Respiratory Rate 16 Blood Pressure 147/73 H Pulse Oximetry 95 Intake & Output 04/11/18 04/12/18 04/12/18 18:59 06:59 18:59 Intake Total 1000 / 1000 1291.2 / 1291.2 Balance 1000 / 1000 1291.2 / 1291.2 Intake: IV 1000 / 1000 1291.2 / 1291.2 NS Inj 1,000 ML @ 70 mls/hr IV. 1000 / 1000 780 / 780 CONT .[id number] [facility] Rx#:[id number] MVI-12 Inj 10 ML Thiamine Inj 511.2 / 511.2 100 MG Folvite Inj 1 MG In NS Inj 500 ML @ 127.8 mls/hr IV. SIG Q24H [facility] Rx#:[id number] Other: # Voids 5 Date of Last Bowel Movement 04/12/18 # Bowel Movements 4 Narrative: GENERAL: NAD SKIN: Warm and dry. HEAD: Normocephalic. EYES: No scleral icterus. No injection or drainage. NECK: Supple, trachea midline. No JVD or lymphadenopathy. CARDIOVASCULAR: Regular rate and rhythm without murmurs, gallops, or rubs. RESPIRATORY: Breath sounds equal bilaterally. No accessory muscle use. GASTROINTESTINAL: Abdomen soft, non-tender, nondistended. MUSCULOSKELETAL: No cyanosis, or edema. BACK: Nontender without obvious deformity. No CVA tenderness. Results - Labs CBC & Chem 7: 04/10/18 17:23 04/10/18 17:23 Laboratory Results - last 24 hr 04/11/18 06:13 FELICITY Screen Neg RPR Nonreactive - Imaging Impressions Cervical Spine MRI 04/11/18 00:00 CONCLUSION: 1. Minimal degenerative disc disease at C5-C6 and C6-C7. No narrowing of the central canal or neural foraminal impingement. Head CT 04/11/18 17:42 CONCLUSION: 1. No acute intracranial abnormality. . - Procedures None Assessment and Plan - Assessment (1) Ischemic stroke Code(s): I63.9 - Cerebral infarction, unspecified Status: Acute (2) HTN (hypertension) Code(s): I10 - Essential (primary) hypertension Status: Chronic (3) EtOH dependence Code(s): F10.20 - Alcohol dependence, uncomplicated Status: Chronic (4) Acute alcohol intoxication Code(s): F10.929 - Alcohol use, unspecified with intoxication, unspecified Status: Acute - Plan 42-year-old man with Probable ischemic right MCA stroke Mild left hemiparesis s/p TPA 04/10 On ASA CTA brain and carotids negative. MRI brain and MRI C-spine negative for acute findings Hypercoagulable w/u, lipid panel, Echo with EF 55-60%, EEG no seizures Holter monitoring pending Appreciate input from neurology EtOH dependence Acute alcohol intoxication CIWA protocol. MVI/thiamine/folic acid supplementation IV. R subconjunctival hemorrhage Dr. Pugh had discussed with Dr. Herzog with ophthalmology prior to TPA and it was not felt to pose contraindication to thrombolytic Tobacco abuse Tobacco cessation counseling Hypertension We will start low-dose Norvasc 5 mg p.o. daily 04/12/18 Transaminitislikely secondary to chronic alcohol use. Acute hypokalemia Replace potassium per ICU electrolyte replacement protocol. Leukopenia Monitor for signs and symptoms of infection. Normal platelet count and coags. Erythrocyte macrocytosis Follow-up folic acid and B12 ordered per neurology PROPH: SCDs for DVT prophylaxis. No pharmacologic DVT prophylaxis for 24 hours following TPA. Famotidine for stress ulcer prophylaxis.
[2018-04-12] MEDS: amLODIPine 5 MG Tablet PO SCH (11:24)
[2018-04-12 20:01] VITALS: RESP 18
[2018-04-12] MEDS: Multivitamin Inj 10 ML, Thiamine Inj 100 MG, Folic Acid Inj 1 MG in Sodium Chlor 0.9% I... IV.SIG SCH (20:17)
[2018-04-13] MEDS: Chlorhexidine Gluconate 2% 1 Pack (2 Cloths) TOPICAL SCH (04:30)
--- NOTE | 2018-04-13 07:38 | P.PNNEU ---
Subjective Subjective Comments: sr Active Medications: Active Medications Al Hydroxide/Mg Hydroxide (Milk Of Magnesia Liq) 30 ml PO Q12H PRN PRN Reason: Mild Constipation Albuterol (Duoneb Neb (Prn)) 1 ampul NEB Q2HR NEB PRN PRN Reason: WHEEZING Amlodipine Besylate (Norvasc) 5 mg PO DAILY [facility] Last Admin: 04/12/18 11:24 Dose: 5 mg Aspirin (Aspirin) 81 mg PO DAILY [facility] Last Admin: 04/12/18 09:51 Dose: 81 mg Bisacodyl (Dulcolax Supp) 10 mg RECTAL DAILY PRN PRN Reason: SEVERE CONSITIPATION Chlorhexidine Gluconate (Chlorhexidine 2% Cloth) 3 pack TOPICAL DAILY@0400 [facility] Stop: 04/16/18 03:59 Last Admin: 04/13/18 04:30 Dose: Not Given Chlorhexidine Gluconate (Chlorhexidine 2% Cloth) 3 pack TOPICAL DAILY@0400 PRN PRN Reason: Extra cloth needed Stop: 04/16/18 03:59 Cyanocobalamin (Vitamin B12 Inj) 1,000 mcg IM ONCE [facility] Famotidine (Pepcid) 20 mg PO BID [facility] Last Admin: 04/12/18 20:17 Dose: 20 mg Flumazenil (Romazecon Inj) 0.2 mg IV.PUSH Q1M PRN PRN Reason: OVERSEDATION Haloperidol Lactate (Haldol Inj) 1 mg IV.PUSH Q15M PRN PRN Reason: for severe agitation Hydralazine HCl (Apresoline Inj) 10 mg IV.PUSH Q30M PRN PRN Reason: SBP >180 or DBP >105 Multivitamins 10 ml/ Thiamine HCl 100 mg/ Folic Acid 1 mg/Sodium Chloride 511.2 mls @ 127.8 mls/hr IV.SIG Q24H [facility] Last Infusion: 04/13/18 00:20 Dose: Infused Labetalol HCl (Trandate Inj) 10 mg IV.PUSH Q4H PRN PRN Reason: SBP >180 or DBP >105 Lactulose (Lactulose Liq) 30 ml PO DAILY PRN PRN Reason: SEVERE CONSITIPATION Lorazepam (Ativan) 1 mg PO Q4H PRN PRN Reason: for CIWA 8-10 Lorazepam (Ativan) 2 mg PO Q2H PRN PRN Reason: for CIWA 11-14 Lorazepam (Ativan Inj) 2 mg IV.PUSH Q2H PRN PRN Reason: for CIWA 11-14 Last Admin: 04/10/18 21:00 Dose: 2 mg Lorazepam (Ativan Inj) 2 mg IV.PUSH Q1H PRN PRN Reason: for CIWA 15-20 Lorazepam (Ativan Inj) 2 mg IV.PUSH Q15M PRN PRN Reason: for CIWA > 20 Lorazepam (Ativan Inj) 1 mg IV.PUSH Q4H PRN PRN Reason: for CIWA 8-10 Last Admin: 04/11/18 11:12 Dose: 1 mg Nicotine (Habitrol 21 Mg Patch.24 Hr) 1 patch T-DERMAL DAILY [facility] Last Admin: 04/12/18 15:35 Dose: 1 patch Ondansetron HCl (Zofran Inj) 4 mg IV.PUSH Q6H PRN PRN Reason: NAUSEA OR VOMITING Patch Removal (Remove Old Patch) 1 each T-DERMAL HS [facility] Last Admin: 04/12/18 20:18 Dose: 1 each Senna/Docusate Sodium (Isa-Colace) 1 tab PO BID [facility] Last Admin: 04/12/18 20:17 Dose: Not Given Sennosides (Senokot) 17.2 mg PO Q12H PRN PRN Reason: Moderate Constipation Sodium Chloride (Ns Flush) 2 ml IV.FLUSH PRN PRN PRN Reason: FLUSH AFTER USING IV ACCESS Sodium Chloride (Ns Flush) 2 ml IV.FLUSH BID [facility] Last Admin: 04/12/18 20:20 Dose: 2 ml Allergies/Adverse Reactions: Allergies Allergy/AdvReac Type Severity Reaction Status Date / Time No Known Allergies Allergy Verified 04/10/18 17:46 Physical Exam Vital signs: Vital Signs 04/12/18 08:00 04/12/18 10:16 04/12/18 12:00 Temperature 98.2 F 98.1 F Pulse Rate 56 L 63 Respiratory Rate 16 14 Blood Pressure 147/73 H 172/95 H Pulse Oximetry 95 95 98 04/12/18 16:00 04/12/18 20:00 04/13/18 00:00 Temperature 98.1 F 98.2 F 97.9 F Pulse Rate 59 L 66 49 L Respiratory Rate 14 18 18 Blood Pressure 156/85 H 151/94 H 153/76 H Pulse Oximetry 98 98 97 04/13/18 04:00 Temperature 98.0 F Pulse Rate 66 Respiratory Rate 18 Blood Pressure 149/80 H Pulse Oximetry 97 Intake & Output 04/12/18 04/13/18 04/13/18 18:59 06:59 18:59 Intake Total 1000 / 1000 Balance 1000 / 1000 Weight 71.3 kg Intake: IV 500 / 500 MVI-12 Inj 10 ML Thiamine Inj 500 / 500 100 MG Folvite Inj 1 MG In NS Inj 500 ML @ 127.8 mls/hr IV. SIG Q24H [facility] Rx#:[id number] Oral 500 / 500 Other: # Voids 2 Date of Last Bowel Movement 04/12/18 04/12/18 Narrative: awake nad not nervous moving left well Objective Laboratory Results - last 24 hr 04/11/18 06:13 Homocysteine Cardiovas 74.0 H Microbiology 04/11/18 06:45 Urine Culture - Preliminary Catheterized Urine No growth in 24 hours Review/Management - Review/Management Plan: imp sr mri no cva ctax2 neg fu echo ok to floor oob asa 24 hours after tpa not suprised no cva he was very drunk last pm cocaine positive dc soon if echo neg would dc on asa mvi b12 shot 04/12/18 echo and labs nl b12 low injection mvi eeg nl fu holter and hyper screen can dc on asa 81 mg after holter finished should dc drinking and cocaine 04/13/18 nothing new overnoc holter on no new spells sron tele asa ok to dc i will fu hoter and hyper
--- NOTE | 2018-04-13 08:59 | P.PN ---
Subjective Interval history: Follow-up ischemic right MCA stroke April 12, 2018-, no acute event overnight. No complaint of shortness of breath , chest pain or dizziness. April 13, 2018-patient seen and examined, no chest pain or shortness of breath. No new events on Holter monitoring. Looking forward go home today. Physical Exam Vital signs: Vital Signs 04/12/18 10:16 04/12/18 12:00 04/12/18 16:00 Temperature 98.1 F 98.1 F Pulse Rate 63 59 L Respiratory Rate 14 14 Blood Pressure 172/95 H 156/85 H Pulse Oximetry 95 98 98 04/12/18 20:00 04/13/18 00:00 04/13/18 04:00 Temperature 98.2 F 97.9 F 98.0 F Pulse Rate 66 49 L 66 Respiratory Rate 18 18 18 Blood Pressure 151/94 H 153/76 H 149/80 H Pulse Oximetry 98 97 97 Intake & Output 04/12/18 04/13/18 04/13/18 18:59 06:59 18:59 Intake Total 1000 / 1000 Balance 1000 / 1000 Weight 71.3 kg Intake: IV 500 / 500 MVI-12 Inj 10 ML Thiamine Inj 500 / 500 100 MG Folvite Inj 1 MG In NS Inj 500 ML @ 127.8 mls/hr IV. SIG Q24H [facility] Rx#:[id number] Oral 500 / 500 Other: # Voids 2 Date of Last Bowel Movement 04/12/18 04/12/18 Narrative: GENERAL: NAD SKIN: Warm and dry. HEAD: Normocephalic. EYES: No scleral icterus. No injection or drainage. NECK: Supple, trachea midline. No JVD or lymphadenopathy. CARDIOVASCULAR: Regular rate and rhythm without murmurs, gallops, or rubs. RESPIRATORY: Breath sounds equal bilaterally. No accessory muscle use. GASTROINTESTINAL: Abdomen soft, non-tender, nondistended. MUSCULOSKELETAL: No cyanosis, or edema. BACK: Nontender without obvious deformity. No CVA tenderness. Results - Labs CBC & Chem 7: 04/10/18 17:23 04/10/18 17:23 Laboratory Results - last 24 hr 04/11/18 06:13 Homocysteine Cardiovas 74.0 H Microbiology 04/11/18 06:45 Catheterized Urine Urine Culture - Preliminary No growth in 24 hours - Procedures None Assessment and Plan - Assessment (1) Ischemic stroke Code(s): I63.9 - Cerebral infarction, unspecified Status: Acute (2) HTN (hypertension) Code(s): I10 - Essential (primary) hypertension Status: Chronic (3) EtOH dependence Code(s): F10.20 - Alcohol dependence, uncomplicated Status: Chronic (4) Acute alcohol intoxication Code(s): F10.929 - Alcohol use, unspecified with intoxication, unspecified Status: Acute - Plan 42-year-old man with Probable ischemic right MCA stroke Mild left hemiparesis s/p TPA 04/10 On ASA CTA brain and carotids negative. MRI brain and MRI C-spine negative for acute findings Hypercoagulable w/u, lipid panel, Echo with EF 55-60%, EEG no seizures Holter monitoring with no new event as of today April 13, 2018 Appreciate input from neurology EtOH dependence Acute alcohol intoxication CIWA protocol. MVI/thiamine/folic acid supplementation IV. R subconjunctival hemorrhage Dr. Pugh had discussed with Dr. Herzog with ophthalmology prior to TPA and it was not felt to pose contraindication to thrombolytic Tobacco abuse Tobacco cessation counseling Hypertension Continue low-dose Norvasc 5 mg p.o. daily Transaminitislikely secondary to chronic alcohol use. Acute hypokalemia Replace potassium per ICU electrolyte replacement protocol. Leukopenia Monitor for signs and symptoms of infection. Normal platelet count and coags. Erythrocyte macrocytosis Follow-up folic acid and B12 ordered per neurology PROPH: SCDs for DVT prophylaxis. Famotidine for stress ulcer prophylaxis.
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
[2018-04-13] MEDS: Aspirin 325 MG Tablet PO SCH (10:47)
[2018-04-13] MEDS: Senna/Docusate Sodium 8.6/50 MG Tablet PO SCH (10:47)
[2018-04-13] MEDS: Famotidine 20 MG Tablet PO SCH (10:48)
[2018-04-13] MEDS: amLODIPine 5 MG Tablet PO SCH (10:48)
[2018-04-13 13:52] LABS: Dil Russell Viper Venom Conf ( NEGATIVE (NEGATIVE); Dil Russell Viper Venom Time M ND (CORRECTED); Lupus Anticoagulant PTT Screen 40 seconds (< OR = 40)
[2018-04-13 15:21] VITALS: BP 144/75; PULSE 70; TEMP 97.9; O2SAT 99
[2018-04-14 03:49] LABS: Activated Protein C Resistance 5.1 ratio (> OR = 2.1)
[2018-04-15 14:20] LABS: Factor V Leiden Mutation Negative (Negative); Protein C Antigen 104 % (70-150)
--- NOTE | 2018-04-15 16:32 | HM ---
Date Performed: 04/12/2018 Time Performed: 08:55:00 HOOKUP DATE: 04/12/18 08:55:00 AM Tue ANALYSIS START TIME: 04/12/2018 9:00:00 AM ANALYSIS END TIME: 04/13/2018 9:03:59 AM PATIENT AGE: 42 PATIENT HEIGHT PATIENT WEIGHT DRUG LIST PATIENT DIAGNOSIS: poss injestion TEST NARRATIVE: The patient's average heart rate was 63 BPM. No episodes of tachycardia wer e noted. Heart rates less than 50 BPM were noted 5% of the time. No pauses exceeding 2.0 seconds were noted. No ventricular ectopics were noted. 12 supraventricular ectopics, which represen debi < 1% of the total beat count, were noted. The highest supraventricular ectopic frequency occurre d from 11:00 AM to 12:00 PM Tue. During this time 2 SVE(s) occurred. Multiple episodes of ST dep ression (defined as -1.0 mm or more) were noted in channel 1. The maximum depression of -2.4 mm occ urred at 08:55:25 AM Wed. No episodes of ST depression (defined as -1.0 mm or more) were noted in ch alexi 2. No episodes of ST depression (defined as -1.0 mm or more) were noted in channel 3. TEST INTERPRETATION: 24 Hour Holter Moniter-Dr. Ger Michelle Holter moniter demonstrates dannie l Sinus rhythm with sinus Bradycardia at 10:54 p.m. to 47 beats per minute. there was an episode of sinus tachycar vannesa to 109 beats per minute at 06:26 p.m. There were no significant ectopics noted. There was no evid ence of atrial fibrillation present. Signed by : Ger Michelle
== END 2018-04-13 12:16 | disposition home or self-care (01) ==
LOC: NEPE 17:12 → NEDA 19:23 → HIMC 19:45 → N05 04-11 14:42
PROVIDERS: ADMIT Hospitalist; ATTEND Hospitalist